=== PATIENT | female | born 1985 | race Caucasian/White ===

== ENCOUNTER → 2017-12-30 | Outpatient (CLI) | payer OTHER | LOC: M RAD 09:25 | DX: N64.4 Mastodynia (principal); Z80.3 Family history of malignant neoplasm of breast | CPT/HCPCS: 77066 ==

== ENCOUNTER 2018-09-02 10:29 | Emergency (ER) | payer OTHER ==
[~2018-09-02] VITALS: Ht 165.1 cm; Wt 65.1 kg
[2018-09-02] MEDS ORDERED: BUSP5TA PO (10:38)
[2018-09-02] MEDS ORDERED: EFFE37.5 PO (10:38)
[2018-09-02] MEDS ORDERED: ONDANSETRON 4MG/2ML VIAL (J2405) IV ONE (11:00)
[2018-09-02] MEDS ORDERED: NS 1,000 ML IV ONE (11:00)
[2018-09-02] MEDS: MORPHINE 4 MG/ML 1ML VIAL/SYRINGE (J2270) IV PRN ×2 (11:05→11:34)
[2018-09-02 11:22] LABS: BASO % 0.4 % (0.0-1.0); EOS # 0.3 10^3/uL (0.0-0.50); EOS % 2.6 % (0.0-3.0); HEMATOCRIT 41.9 % (36.0-47.0); HEMOGLOBIN 14.2 g/dl (12.0-15.5); LYMPH # 3.2 10^3/uL (1.5-4.5); LYMPH % 30.6 % (24.0-44.0); MEAN CORPUSCULAR HEMOGLOBIN 29.3 pg (27.0-33.0); MEAN CORPUSCULAR HGB CONC 33.9 g/dl (32.0-36.5); MEAN CORPUSCULAR VOLUME 86.6 fl (80.0-96.0); MONO # 0.4 10^3/uL (0.0-0.8); MONO % 4.1 % (0.0-5.0); NEUTROPHILS # 6.6 10^3/uL (1.8-7.7); PLATELET COUNT, AUTOMATED 259 10^3/uL (150-450); RED BLOOD COUNT 4.84 10^6/uL (4.00-5.40); WHITE BLOOD COUNT 10.6 10^3/uL (4.0-10.0)
[2018-09-02 11:43] LABS: ALT/SGPT 24 U/L (12-78); AMYLASE 46 U/L (25-115); BILIRUBIN,DIRECT 0.1 MG/DL (0.0-0.2); BILIRUBIN,TOTAL 0.4 MG/DL (0.2-1.0); BLOOD UREA NITROGEN 13 MG/DL (7-18); CALCIUM LEVEL 8.4 MG/DL (8.5-10.1); CARBON DIOXIDE LEVEL 24 MEQ/L (21-32); CHLORIDE LEVEL 106 MEQ/L (98-107); CREATININE FOR GFR 0.62 MG/DL (0.55-1.30); GLOMERULAR FILTRATION RATE > 60.0 (>60); GLUCOSE, FASTING 91 MG/DL (70-100); LIPASE 144 U/L (73-393); POTASSIUM SERUM 3.7 MEQ/L (3.5-5.1); SODIUM LEVEL 140 MEQ/L (136-145); TOTAL PROTEIN 6.7 GM/DL (6.4-8.2)
[2018-09-02 11:49] LABS: HCG, SERUM QUALITATIVE NEGATIVE (NEGATIVE)
[2018-09-02] MEDS ORDERED: GI COCKTAIL 50ML BTL(HYOSCYAMINE/MAALOX/LIDOCAINE VISCOUS)(1:3:1) PO ONE (12:15)
[2018-09-02] MEDS ORDERED: CARA1TAB6 PO (12:39)
[2018-09-02] MEDS ORDERED: SIME180C PO (12:39)
[2018-09-02] MEDS ORDERED: PROT1TAB2 PO (12:39)
[2018-09-02 12:54] VITALS: BP 118/71
[2018-09-14] MEDS ORDERED: SIME180C PO (14:49)
== END 2018-09-02 12:56 | disposition home or self-care (01) ==
LOC: M ED 10:29
DX: R10.9 Unspecified abdominal pain (principal)
CPT/HCPCS: 80048; 80076; 82150; 83690; 84703; 85025; 96361; 96374; 96375; 99284; J2270; J2405

== ENCOUNTER 2018-09-12 19:34 | Emergency (ER) | payer OTHER ==
[~2018-09-12] VITALS: Ht 165.1 cm; Wt 63.6 kg
[~2018-09-12 19:34] MED LIST: BUSP5TA PO; CARA1TAB6 PO; EFFE37.5 PO; PROT1TAB2 PO; SIME180C PO
[2018-09-12] MEDS ORDERED: XANA0.25 PO ×2 (21:52→21:55)
[2018-09-12] MEDS ORDERED: ALPRAZolam 0.25 MG TAB PO ONE (22:00)
[2018-09-12 22:19] VITALS: BP 109/66
[2018-09-14] MEDS ORDERED: SIME180C PO (14:49)
== END 2018-09-12 22:21 | disposition home or self-care (01) ==
LOC: M ED 19:34
DX: F43.0 Acute stress reaction (principal); F41.8 Other specified anxiety disorders; F32.9 Major depressive disorder, single episode, unspecified; K21.9 Gastro-esophageal reflux disease without esophagitis; F17.200 Nicotine dependence, unspecified, uncomplicated; Z79.899 Other long term (current) drug therapy

== ENCOUNTER 2018-09-28 13:23 | Day surgery (SDC) | payer OTHER ==
[~2018-09-28] VITALS: Ht 165.1 cm; Wt 64.5 kg
[~2018-09-28 13:23] MED LIST changes: +NS 1,000 ML IV ONE; +XANA0.25 PO
[2018-09-28] MEDS ORDERED: PROPOFOL 200 MG/20 ML VIAL As Ordered ONE (15:19)
--- NOTE | 2018-09-28 15:53 | ROOR ---
Patient Name: Violet Huddleston Procedure Date: 09/28/2018 3:32 PM Date of : 1985 Age: 32 Room: [facility] Gender: Female Note Status: Finalized Procedure: Upper GI endoscopy Indications: Epigastric abdominal pain Providers: Antonio CHEUNG MD Referring MD: VIRGIE GARVIN MD Requesting Provider: Medicines: Monitored Anesthesia Care Complications: No immediate complications. Procedure: Pre-Anesthesia Assessment: - The heart rate, respiratory rate, oxygen saturations, blood pressure, adequacy of pulmonary ventilation, and response to care were monitored throughout the procedure. The Endoscope was introduced through the mouth, and advanced to the second part of duodenum. The upper GI endoscopy was accomplished without difficulty. The patient tolerated the procedure well. Findings: Diffuse mild inflammation characterized by erythema was found in the gastric antrum. Biopsies were taken with a cold forceps for histology. Bilious fluid was found in the gastric antrum. The exam of the stomach was otherwise normal. The examined esophagus was normal. The examined duodenum was normal. Impression: - Mild Gastritis/bile gastropathy. Biopsied. - The stomach is otherwise normal. - Normal esophagus. - Normal examined duodenum. Recommendation: - Use sucralfate tablets 1 gram PO BID. - Telephone endoscopist for pathology results in 2 weeks. - (the script was sent to your pharmacy on file) Antonio Cheung MD Antonio CHEUNG MD 09/28/2018 3:53:04 PM This report has been signed electronically. Number of Addenda: 0 Note Initiated On: 09/28/2018 3:32 PM Estimated Blood Loss: Estimated blood loss: none.
[2018-09-28 16:15] VITALS: BP 118/71
== END 2018-09-28 16:26 | disposition home or self-care (01) ==
LOC: M OPP 13:23
PROVIDERS: ATTEND Internal Medicine Gastroenterology
DX: K29.60 Other gastritis without bleeding (principal); R10.13 Epigastric pain; F17.210 Nicotine dependence, cigarettes, uncomplicated; Z79.899 Other long term (current) drug therapy